=== PATIENT | male | born 1960 | race Caucasian/White ===

== ENCOUNTER 2017-09-30 11:58 | Day surgery (SDC) | payer BC ==
[2017-09-30] MEDS ORDERED: LIDOCAINE 2% MDV (20MG/ML) 20ML VIAL IV ONE (11:59)
[2017-09-30] MEDS ORDERED: PROPOFOL 10 MG/ML VIAL IV ONE (11:59)
--- NOTE | 2017-10-01 12:30 | Operative Note ---
DATE OF SURGERY: 09/30/2017 OPERATION: COLONOSCOPY to the cecum with cold snare polypectomy x4 and cold biopsy forceps polypectomy x1. INDICATION: Hemoccult-positive stool. Patient also with previous history of adenomatous polyps. His last examination was in 2013. ANESTHESIA: Intravenous sedation was administered by the department of anesthesiology and included Diprivan titrated to effect. PROCEDURE: Following informed consent from this alert individual including a discussion of the risks and benefits of the procedure and an opportunity for the patient to ask questions, the patient was in the left lateral decubitus position. A digital rectal examination was performed. No abnormalities were noted. Following this, the Olympus MPS122 video colonoscope was inserted into the rectum without resistance. The rectal mucosa had a normal appearance with normal folds and distensibility. The colonoscope was advanced up through the colon to the level of the cecum without much difficulty. Throughout the bowel the mucosa appeared normal, the folds were normal, and the bowel was fairly well distensible. The colon preparation was good. There was some retained liquid and semi-solid stool noted which was washed and suctioned through the colonoscope for good visualization. At the base of the cecum, there was a polyp measuring 5 mm in size. It was removed with cold snare polypectomy and suctioned through the endoscope into a collection trap. On the ileocecal valve, there was a sessile villous-appearing polyp which extended into the orifice of the valve itself. The remainder of the terminal ileum was endoscopically normal. The polyp was removed in piecemeal fashion with a polypectomy snare and suctioned through the endoscope into a collection trap. Retroflexion in the cecum was endoscopically unremarkable. From this point, the colonoscope was then withdrawn. There was a diminutive polyp noted in the transverse colon measuring 3 mm in size which was removed with biopsy forceps. There were 5-6 mm polyps noted at the descending colon and sigmoid colon removed with cold snare polypectomy. The endoscope was then drawn back into the rectum. Retroflexion accomplished following air insufflation failed to demonstrate any additional changes. The endoscope was then withdrawn. The patient tolerated the procedure well and was returned to the recovery area in stable condition. IMPRESSION: 1. A 5 mm cecal base polyp removed with cold snare polypectomy. 2. A sessile villous-appearing polyp measuring 1.2 to 1.5 mm in size involving the ileocecal valve orifice itself. This was removed in piecemeal fashion with cold snare polypectomy. 3. A 3 mm transverse colon polyp removed with biopsy forceps. 4. A 5-6 mm descending colon polyp removed with cold snare polypectomy. 5. A 5-6 mm sigmoid colon polyp removed with cold snare polypectomy. 6. Normal terminal ileum. RECOMMENDATIONS: further recommendations will be forthcoming pending results of pathology obtained today. I might recommend recheck colonoscopy in 1 year's time particularly to evaluate the ileocecal valve polyp which again was involving the orifice of the valve itself. Followup will also be with Dr. Ndiaye. As always, thank you for allowing me to participate in the care of your patient. CC: MD LEILA Marrero
== END 2017-09-30 14:24 | disposition home or self-care (01) ==
LOC: HOP 11:58
PROVIDERS: ATTEND Internal Medicine Gastroenterology
DX: Z86.010 Personal history of colon polyps (principal); R19.5 Other fecal abnormalities; D12.5 Benign neoplasm of sigmoid colon; D12.8 Benign neoplasm of rectum; D12.0 Benign neoplasm of cecum; D12.3 Benign neoplasm of transverse colon; D12.4 Benign neoplasm of descending colon; I10 Essential (primary) hypertension; E11.9 Type 2 diabetes mellitus without complications; Z79.84 Long term (current) use of oral hypoglycemic drugs; E78.00 Pure hypercholesterolemia, unspecified

== ENCOUNTER 2019-02-16 08:51 | Day surgery (SDC) | payer BC ==
[2019-02-16] MEDS ORDERED: LIDOCAINE 2% MDV (20MG/ML) 20ML VIAL IV ONE (08:52)
[2019-02-16] MEDS ORDERED: PROPOFOL 10 MG/ML VIAL IV ONE (08:52)
--- NOTE | 2019-02-17 07:50 | Operative Note ---
OPERATION: COLONOSCOPY to the cecum and terminal ileum with biopsy. INDICATION: History of multiple adenomatous polyps removed last year with one large polyp removed from the ileocecal valve. The patient returns at this time for surveillance, particularly to evaluate the ileocecal valve polyp to see if there is any return. ANESTHESIA: Intravenous sedation was administered by the department of anesthesiology and included Diprivan titrated to effect. PROCEDURE: Following informed consent from this alert individual including a discussion of the risks and benefits of the procedure and an opportunity for the patient to ask questions, the patient was in the left lateral decubitus position. A digital rectal examination was performed. No abnormalities were noted. Following this, the Olympus [id number] video colonoscope was inserted into the rectum without resistance. The rectal mucosa had a normal appearance with normal folds and distensibility. The colonoscope was advanced up through the colon to the level of the cecum without much difficulty. Throughout the bowel the mucosa appeared normal, the folds were normal, and the bowel was fairly well distensible. The colon preparation was adequate. The cecum was well defined by noting the appendiceal orifice and ileocecal valve. The terminal ileum was cannulated, and the terminal ileum was found to be unremarkable. At the level of the ileocecal valve, there was a sessile broad-based polyp extending linearly along the orifice of the ileocecal valve. Biopsy of the polyp was taken. This had regrown from polypectomy one year ago. It extended approximately 2 cm in length. After biopsy, the colonoscope was then withdrawn. No additional abnormalities were detected throughout the remainder of the bowel upon withdrawal of the scope. Retroflexion in the rectum was endoscopically unremarkable. There were no additional polyps noted. The instrumen was straightened and removed. The patient tolerated the procedure well and was returned to the recovery area in stable condition. 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 Biopsy taken. RECOMMENDATIONS: This polyp would be difficult to completely remove endoscopically and recurred from previous polypectomy. For this reason, I feel a surgical consultation with Dr. Julito Burrell may prove beneficial for a possible cecectomy. Biopsies pending. As always, thank you for allowing me to participate in the care of your patient. LEILA
== END 2019-02-16 11:14 | disposition home or self-care (01) ==
LOC: HOP 08:51
PROVIDERS: ATTEND Internal Medicine Gastroenterology
DX: Z09 Encounter for follow-up examination after completed treatment for conditions other than malignant neoplasm (principal); Z86.010 Personal history of colon polyps; D12.0 Benign neoplasm of cecum; E11.9 Type 2 diabetes mellitus without complications; E78.00 Pure hypercholesterolemia, unspecified; I10 Essential (primary) hypertension